=== PATIENT | female | born 1955 | race Asian ===

== ENCOUNTER 2021-06-16 13:09 | Outpatient (CLI) | payer OTHER | END 2021-06-16 18:57 | disposition home or self-care (01) | LOC: RAD 13:09 | PROVIDERS: ATTEND Nurse Practitioner Family | DX: J22 Unspecified acute lower respiratory infection (principal); J30.2 Other seasonal allergic rhinitis; Z87.09 Personal history of other diseases of the respiratory system; Z09 Encounter for follow-up examination after completed treatment for conditions other than malignant neoplasm ==

== ENCOUNTER 2021-08-14 08:40 | Outpatient (CLI) | payer OTHER | END 2021-08-14 20:25 | disposition home or self-care (01) | LOC: MRI 08:40 | PROVIDERS: ATTEND Physician Assistant | DX: M54.59 Other low back pain (principal); E11.9 Type 2 diabetes mellitus without complications; N18.9 Chronic kidney disease, unspecified; J45.909 Unspecified asthma, uncomplicated; E78.49 Other hyperlipidemia; K21.9 Gastro-esophageal reflux disease without esophagitis; E55.9 Vitamin D deficiency, unspecified; G62.89 Other specified polyneuropathies; Z12.31 Encounter for screening mammogram for malignant neoplasm of breast; I12.9 Hypertensive chronic kidney disease with stage 1 through stage 4 chronic kidney disease, or unspecified chronic kidney disease ==

== ENCOUNTER 2022-03-10 17:11 | Emergency (ER) | payer OTHER ==
[~2022-03-10] VITALS: Ht 170.2 cm; Wt 112.0 kg
[2022-03-10 17:46] LABS: PLATELET COUNT 271 K/uL (152-353)
[2022-03-10 18:06] LABS: POTASSIUM 4.5 mmol/L (3.6-5.2)
[2022-03-11 00:40] VITALS: BP 148/59; TEMP 98.5
== END 2022-03-11 00:40 | disposition short-term general hospital (02) ==
LOC: ED 17:11
PROVIDERS: Emergency Medicine Emergency Medical Services
DX: N18.9 Chronic kidney disease, unspecified (principal); R79.89 Other specified abnormal findings of blood chemistry
CPT/HCPCS: 36415; 80053; 83735; 84484; 85027; 85379; 85610; 85730; 93005; 96360; 96372; 96374; 99285; J0360; J1650

== ENCOUNTER 2022-09-29 18:44 | Observation (INO) | payer OTHER ==
[~2022-09-29] VITALS: Ht 170.2 cm; Wt 107.5 kg
[2022-09-29 18:50] VITALS: BP 189/71; TEMP 97.9
[2022-09-29 19:19] LABS: PLATELET COUNT 276 K/uL (152-353)
[2022-09-29 19:30] VITALS: BP 128/48
[2022-09-29 19:36] LABS: POTASSIUM 4.6 mmol/L (3.6-5.2)
[2022-09-29 20:00] VITALS: BP 141/84
[2022-09-29 20:30] VITALS: BP 113/89
[2022-09-29 21:00] VITALS: BP 185/65
[2022-09-29 22:13] VITALS: BP 169/44; TEMP 99; Ht 170.2 cm; Wt 107.5 kg
[2022-09-30 04:21] LABS: PLATELET COUNT 247 K/uL (152-353)
[2022-09-30 05:02] LABS: POTASSIUM 4.7 mmol/L (3.6-5.2)
[2022-09-30 06:50] VITALS: BP 158/55; TEMP 99.5
[2022-09-30] MEDS ORDERED: FARXIGA10 MG PO (08:06)
[2022-09-30] MEDS ORDERED: ALBUTEROL108 MCG/AC INH (08:06)
[2022-09-30] MEDS ORDERED: RAYALDEE30 MCG PO (08:06)
[2022-09-30] MEDS ORDERED: MONT10TA PO (08:07)
[2022-09-30] MEDS ORDERED: GLIM2TAB PO (08:07)
[2022-09-30] MEDS ORDERED: HYDRALAZINE50 MG PO (08:07)
[2022-09-30] MEDS ORDERED: HYZAAR1 TA1 PO (08:08)
[2022-09-30] MEDS ORDERED: FLONASE AL50 MCG/ACT NAS (08:09)
[2022-09-30] MEDS ORDERED: ALLO300T23 PO (08:09)
[2022-09-30] MEDS ORDERED: CLARITIN10 M1 PO (08:09)
[2022-09-30] MEDS ORDERED: RENVELA800 MG PO (08:10)
[2022-09-30] MEDS ORDERED: AMLODIPINE BESYLATE PO (08:10)
[2022-09-30] MEDS ORDERED: LOPRESSOR100 MG PO (08:11)
[2022-09-30] MEDS ORDERED: ATOR10TA3 PO (08:11)
[2022-09-30 12:00] VITALS: BP 186/71; TEMP 98.9
[2022-09-30 16:00] VITALS: BP 180/71; TEMP 99
== END 2022-09-30 19:00 | disposition home or self-care (01) ==
LOC: ED 18:44 → MED/SURG 20:26
PROVIDERS: ADMIT Nurse Practitioner Family; ATTEND Family Medicine
DX: E87.1 Hypo-osmolality and hyponatremia (principal); E86.0 Dehydration; M62.838 Other muscle spasm
CPT/HCPCS: 36415; 80048; 80053; 81002; 83735; 84100; 85027; 93005; 96361; 96374; 96375; 99221; 99284; G0378; J1642; J2060

== ENCOUNTER 2022-10-15 08:56 | Outpatient (CLI) | payer OTHER ==
[~2022-10-15] VITALS: Ht 170.2 cm; Wt 108.0 kg
[~2022-10-15 08:56] MED LIST: ALBUTEROL108 MCG/AC INH; ALLO300T23 PO; AMLODIPINE BESYLATE PO; ATOR10TA3 PO; CLARITIN10 M1 PO; FARXIGA10 MG PO; FLONASE AL50 MCG/ACT NAS; GLIM2TAB PO; HYDRALAZINE50 MG PO; HYZAAR1 TA1 PO; LOPRESSOR100 MG PO; MONT10TA PO; RAYALDEE30 MCG PO; RENVELA800 MG PO
[2022-10-15 09:05] VITALS: BP 142/49; TEMP 97.5
[2022-10-15 10:33] VITALS: BP 143/55; TEMP 97.5
== END 2022-10-15 20:49 | disposition home or self-care (01) ==
LOC: INF 08:56
PROVIDERS: ATTEND Internal Medicine
DX: I12.9 Hypertensive chronic kidney disease with stage 1 through stage 4 chronic kidney disease, or unspecified chronic kidney disease (principal); N18.4 Chronic kidney disease, stage 4 (severe); D63.1 Anemia in chronic kidney disease; R80.8 Other proteinuria
CPT/HCPCS: 96365; Q0138

== ENCOUNTER 2022-12-01 11:45 | Emergency (ER) | payer OTHER ==
[~2022-12-01] VITALS: Ht 170.2 cm; Wt 109.3 kg
[2022-12-01 12:00] VITALS: BP 155/62; TEMP 97.1
== END 2022-12-01 12:10 | disposition home or self-care (01) ==
LOC: ED 11:45
DX: Z53.21 Procedure and treatment not carried out due to patient leaving prior to being seen by health care provider (principal)
CPT/HCPCS: 99281